=== PATIENT | female | born 1985 | race American Indian/Alaskan Native ===

== ENCOUNTER 2019-03-04 09:05 | Emergency (ER) | payer MEDICAID ==
[2019-03-04 09:14] VITALS: BP 108/67
--- NOTE | 2019-03-04 10:09 | Emergency Department Report ---
ED General Adult HPI - General Chief complaint: Sore Throat Stated complaint: SORE THROAT Time Seen by Provider: 03/04/19 09:35 Source: patient Mode of arrival: Ambulatory Limitations: No Limitations - History of Present Illness Initial comments: 33-year-old Iranian female, doesn't emerge department complaining of a a few day history of progressively worsening odynophagia. She reports no dysphagia. She reports no fever, chills, sweats, nausea, vomiting, cough, hemoptysis, hematemesis, hematochezia, palpitations, swallowing foreign bodies. She is able to tolerate eating and drinking with no limitations but this issue is becoming progressively more aggravating and she would like to have it evaluated. She reports no family history of any thyroid disorder. No no malignancies, to her knowledge. Radiation: non-radiation Quality: dull Consistency: constant Improves with: none Worsens with: none Associated Symptoms: denies: chest pain, loss of appetite, malaise, nausea/vomiting, rash, seizure, syncope, weakness - Related Data Previous Rx's Medication Instructions Recorded Last Taken Type Lidocaine Viscous 2% 10 ml MM Q3HR PRN #240 ud 03/04/19 Unknown Rx Allergies Allergy/AdvReac Type Severity Reaction Status Date / Time Penicillins Allergy Angioedema Verified 03/04/19 09:06 ED Review of Systems ROS: Stated complaint: SORE THROAT Other details as noted in HPI Constitutional: denies: chills, fever Eyes: denies: eye pain, eye discharge, vision change ENT: denies: ear pain, throat pain Respiratory: denies: cough, shortness of breath, wheezing Cardiovascular: denies: chest pain, palpitations Endocrine: no symptoms reported Gastrointestinal: denies: abdominal pain, nausea, diarrhea Genitourinary: denies: urgency, dysuria, discharge Musculoskeletal: denies: back pain, joint swelling, arthralgia Skin: denies: rash, lesions Neurological: denies: headache, weakness, paresthesias Psychiatric: denies: anxiety, depression Hematological/Lymphatic: denies: easy bleeding, easy bruising ED Past Medical Hx - Past Medical History Hx Asthma: Yes - Surgical History Past Surgical History?: No - Social History Smoking Status: Current Every Day Smoker Substance Use Type: Alcohol - Medications Home Medications: Home Medications Medication Instructions Recorded Confirmed Last Taken Type Lidocaine Viscous 2% 10 ml MM Q3HR PRN #240 udc 03/04/19 Unknown Rx ED Physical Exam - General Limitations: No Limitations General appearance: alert, in no apparent distress - Head Head exam: Present: atraumatic, normocephalic - Eye Eye exam: Present: normal appearance, PERRL, EOMI Pupils: Present: normal accommodation - ENT ENT exam: Present: normal exam, mucous membranes moist - Neck Neck exam: Present: normal inspection, full ROM - Respiratory Respiratory exam: Present: normal lung sounds bilaterally. Absent: respiratory distress, wheezes, rales, rhonchi, chest wall tenderness, accessory muscle use - Cardiovascular Cardiovascular Exam: Present: regular rate, normal rhythm. Absent: systolic murmur, diastolic murmur, rubs, gallop - GI/Abdominal GI/Abdominal exam: Present: soft, normal bowel sounds - Extremities Exam Extremities exam: Present: normal inspection - Back Exam Back exam: Present: normal inspection - Neurological Exam Neurological exam: Present: alert, oriented X3 - Psychiatric Psychiatric exam: Present: normal affect, normal mood - Skin Skin exam: Present: warm, dry, intact, normal color. Absent: rash ED Course Vital Signs 03/04/19 09:13 Temperature 97.8 F Pulse Rate 76 Respiratory 16 Rate Blood Pressure 108/67 [Left] O2 Sat by Pulse 100 Oximetry ED Medical Decision Making - Medical Decision Making Health 33-year-old female with atraumatic odontophagia. No dysphagia is noted. No obvious foreign bodies. Discussed with her the need follow-up with ENT/GI for a scope of her esophageal region due to her purse her symptoms. She feels that this is been progressively worsening, but reports no thyroid symptoms. No night sweats. No weight loss. No intolerability of foods. The pain does radiate down the thumb. The chest. However, she does not have any acid reflux symptoms. Plan is follow-up with ENT or GI for further evaluation and likely an upper GI and endoscopy Critical care attestation.: If time is entered above; I have spent that time in minutes in the direct care of this critically ill patient, excluding procedure time. ED Disposition Clinical Impression: Odynophagia Disposition: [id number] TO HOME OR SELFCARE Is pt being admited?: No Does the pt Need Aspirin: No Condition: Stable Instructions: Strep Throat (ED), Benzocaine/Menthol (By mouth), Foreign Body Ingestion (ED) Prescriptions: Lidocaine Viscous 2% 10 ml MM Q3HR PRN #240 udc PRN Reason: sore throat Referrals: CRISTOBAL HENNESSY MD [Staff Physician] - 3-5 Days
== END 2019-03-04 11:18 | disposition home or self-care (01) ==
LOC: ED 09:05
DX: R13.10 Dysphagia, unspecified (principal); J45.909 Unspecified asthma, uncomplicated; F17.200 Nicotine dependence, unspecified, uncomplicated
CPT/HCPCS: 99282